=== PATIENT | female | born 1945 | race Caucasian/White ===

== ENCOUNTER → 2017-10-18 | Outpatient (CLI) | payer MEDICARE ==
--- NOTE | 2017-10-18 13:46 | BD ---
EXAMINATION TYPE: Axial Bone Density DATE OF EXAM: 10/18/2017 COMPARISON: NONE CLINICAL HISTORY: M85.80 Other specified disorders of bone density Height: 64 Weight: 156.3 FRAX RISK QUESTIONS: Alcohol (3 or more units per day): no Family History (Parent hip fracture): no Glucocorticoids (More than 3mos): no (Ex: prednisone, prednisolone, methylprednisolone, dexamethasone, and hydrocortisone). History of Fracture in Adulthood: no Secondary Osteoporosis: 1. Type 1 Diabetes: no 2. Hyperthyroidism: no 3. Menopause before 45: no 4. Malnutrition: no 5. Chronic liver disease: no Rheumatoid Arthritis: no Current Tobacco Use: no RISK FACTORS HISTORY OF: family History of Osteoporosis: no Active: yes Diet low in dairy products/other sources of calcium: no Postmenopausal woman: age 54 Lost more than 2 inches in height since high school: no Frequent falls: no MEDICATIONS: simvastatin, metroprolol, benacar, metformin, baby aspirin, vit d Additional History: EXAM MEASUREMENTS: Bone mineral densitometry was performed using the [employer] System. Bone mineral density as measured about the Lumbar spine is: ----- L1-L4(G/cm2): 1.231 T Score Values are as follows: ----- L2: 0.7 ----- L3: 1.1 ----- L4: -0.5 ----- L1-L4: 0.4 Bone mineral density has: increased 0.9 % since study of: 09.21.2009 Bone mineral density about the R hip (g/cm2): 1.030 Bone mineral density about the L hip (g/cm2): 0.984 T Score values are as follows: -----R Neck: -0.1 -----L Neck: -0.1 -----R Total: 0.4 -----L Total: 0.3 Bone mineral density has: increased 0.4 % since study of: 09.21.2009 IMPRESSION: No evidence for osteoporosis or osteopenia. NOTE: T-SCORE=SD OF THE YOUNG ADULT MEAN.
== END | disposition home or self-care (01) ==
LOC: RADBDWWP 12:55
PROVIDERS: ATTEND Internal Medicine
DX: M85.80 Other specified disorders of bone density and structure, unspecified site (principal)
CPT/HCPCS: 77080

== ENCOUNTER → 2020-04-21 | Outpatient (CLI) | payer MEDICARE | END | disposition home or self-care (01) | LOC: LABWHC1 16:05 | PROVIDERS: ATTEND Nurse Practitioner Adult Health | DX: Z03.818 Encounter for observation for suspected exposure to other biological agents ruled out (principal) | CPT/HCPCS: U0003; C9803 ==